=== PATIENT | male | born 1965 | race Hispanic/Latino ===

== ENCOUNTER 2018-06-15 18:05 | Emergency (ER) | payer OTHER ==
[~2018-06-15] VITALS: Ht 162.6 cm; Wt 79.4 kg
--- OUTSIDE RECORDS SUMMARY | 2018-06-15 18:07 | XMS REPORT ---
[facility] Address Unknown Phone Unavailable Care Team Providers Care Employee Relations Administrator Name Role Phone Unavailable Unavailable Payers Payer Name Policy Type Policy Number Effective Date Expiration Date Problems This patient has no known problems. Allergies, Adverse Reactions, Alerts Allergy Name Allergy Type Status Severity Reaction(s) Onset Date Inactive Date Treating Clinician Comments No Known Allergies DA Active U 2018-06-15 00:00:00 No Known Allergies DA Active U 2018-05-17 00:00:00 Medications This patient has no known medications. Results Test Description Test Time Test Comments Text Results Atomic Results Result Comments URINALYSIS COMPLETE 2018-06-15 07:03:00 UA COLOR (test code=COLU) YELLOW YELLOW UA APPEARANCE (test code=APPU) CLEAR CLEAR UA GLUCOSE DIPSTICK (test code=DGLUU) NEGATIVE mg/dL NEGATIVE UA BILIRUBIN DIPSTICK (test code=BILU) NEGATIVE mg/dL NEGATIVE UA KETONE DIPSTICK (test code=KETU) NEGATIVE mg/dL NEGATIVE UA SPECIFIC GRAVITY (test code=SGU) 1.019 1.001-1.035 UA BLOOD DIPSTICK (test code=THAD) Negative NEGATIVE UA PH DIPSTICK (test code=HOLLY) 6.0 5.0-8.0 UA PROTEIN DIPSTICK (test code=PROU) NEGATIVE mg/dL NEGATIVE UA UROBILINIOGEN DIPSTICK (test code=URO) 1 mg/dL (1+) mg/dL 0.0-0.2 UA NITRITE DIPSTICK (test code=ERINN) NEGATIVE NEGATIVE UA LEUKOCYTE ESTERASE W REFLEX (test code=LEUUR) NEGATIVE NEGATIVE UA WBC (test code=WBCU) 0-5 per HPF 0-5 UA RBC (test code=RBCU) 0-2 #/HPF 0-5 UA EPITHELIAL CELLS (test code=EPIU) FEW per HPF FEW UA MUCUS (test code=MUCU) FEW #/LPF FEW Urine Source? Clean CatchCBC W/O [id number] 06:24:00* Test Item Value Reference Range Comments WHITE BLOOD CELL (test code=WBC) 4.7 K/mm3 4.5-12.5 RED BLOOD CELL (test code=RBC) 6.65 mill/mm3 4.0-5.8 HEMOGLOBIN (test code=HGB) 12.3 gram/dL 13.0-17.5 HEMATOCRIT (test code=HCT) 40.0 % 42.0-52.0 MEAN CELL VOLUME (test code=MCV) 60.2 fL 80-98 MEAN CELL HGB (test code=MCH) 18.5 picogram 27.0-33.0 MEAN CELL HGB CONCETRATION (test code=MCHC) 30.8 gram/dL 33.0-36.0 RED CELL DISTRIBUTION WIDTH (test code=RDW) 18.2 % 11.6-16.2 PLATELET COUNT (test code=PLT) 184 K/mm3 150-450 MEAN PLATELET VOLUME (test code=MPV) 9.8 fL 6.7-11.0 - US RETRO [id number] 06:15:00 Name: KATHIEJONAS G [facility] : 1965 Age/S: 53 / M [address] [facility] Unit #: [id number] Loc: [place] [address] Phys: Ruddy Lawson MD Acct: [id number] Dis Date: Status: REG ER PHONE #: [phone] Exam Date: 06/15/2018 0558 FAX #: [phone] Reason: L flank pain EXAMS: CPT CODE: [id number] US RETRO LTD [id number] AFTER HOURS SERVICE ON: 06/15/2018 6:15 AM Renal Ultrasound Location Code M12 History: L flank pain Technique: Real-time jaime scale and color flow evaluation was performed using a dedicated transducer. Findings: The right kidney measures 10 x 5 x 6 cm. The left kidney measures 10 x 5 x 5 cm. Renal cortical echogenicities are within normal limits for patient's age. There is a 7 mm nonobstructing left upper pole renal calculus. There is no hydronephrosis. Margins of the kidneys are suboptimally visualized. Adequate flow noted in both kidneys. Bladder is empty. Impression: 7 mm nonobstructing left upper pole renal calculus. at 0615 Reported and signed by: Trevin Lizarraga M.D. CC: Ruddy Lawson MD Technologist: RIVKA ROSA RDMS Trnscb Date/Time: 06/15/2018 (614) [id number] Orig Print D/T: S: 06/15/2018 (617) Probe: PAGE 1 Signed Report BASIC METABOLIC [id number] 06:09:00* Test Item Value Reference Range Comments SODIUM (test code=NA) 139 mmol/L 136-145 POTASSIUM (test code=K) 3.7 mmol/L 3.5-5.1 CHLORIDE (test code=CL) 105.0 mmol/L 98-107 CARBON DIOXIDE (test code=CO2) 27.0 mmol/L 21-32 ANION GAP (test code=GAP) 10.7 10-20 GLUCOSE (test code=GLU) 107 mg/dL 74-106 BLOOD UREA NITROGEN (test code=BUN) 15 mg/dL 7-18 GLOMERULAR FILTRATION RATE (test code=GFR) > 60 mL/min >=60 Estimated GFR by using Modified MDRD formula.Chronic kidney disease is defined as either kidney damageor GFR <60 mL/min/1.73 m2 for >3 months. CREATININE (test code=CREAT) 0.90 mg/dL 0.7-1.3 BUN/CREATININE RATIO (test code=BUN/CREA) 16.7 10-20 CALCIUM (test code=CA) 8.2 mg/dL 8.5-10.1 HEPATIC FUNCTION [id number] 06:09:00* Test Item Value Reference Range Comments TOTAL PROTEIN (test code=PROT) 6.7 gram/dL 6.4-8.2 ALBUMIN (test code=ALB) 3.5 g/dL 3.4-5.0 GLOBULIN (test code=GLOB) 3.2 gram/dL 2.7-4.2 ALBUMIN/GLOBULIN RATIO (test code=A/G) 1.1 0.75-1.50 BILIRUBIN TOTAL (test code=BILT) 0.40 mg/dL 0.0-1.0 BILIRUBIN DIRECT (test code=BILD) 0.12 mg/dL 0.0-0.20 SGOT/AST (test code=AST) 26 IUnit/L 15-37 SGPT/ALT (test code=ALT) 30 IUnit/L 12-78 ALKALINE PHOSPHATASE TOTAL (test code=ALKP) 68 IUnit/L 45-117 Note change in reference range due to change in reagent. [id number] 06:09:00* Test Item Value Reference Range Comments LIPASE (test code=LIP) 90 U/L 73.0-393.0 BASIC METABOLIC [id number] 06:01:00* Test Item Value Reference Range Comments SODIUM (test code=NA) 139 mmol/L 136-145 POTASSIUM (test code=K) 3.7 mmol/L 3.5-5.1 CHLORIDE (test code=CL) 105.0 mmol/L 98-107 CARBON DIOXIDE (test code=CO2) mmol/L 21-32 ANION GAP (test code=GAP) 10-20 GLUCOSE (test code=GLU) mg/dL 74-106 BLOOD UREA NITROGEN (test code=BUN) mg/dL 7-18 GLOMERULAR FILTRATION RATE (test code=GFR) mL/min >=60 CREATININE (test code=CREAT) mg/dL 0.7-1.3 BUN/CREATININE RATIO (test code=BUN/CREA) 10-20 CALCIUM (test code=CA) mg/dL 8.5-10.1 HEPATIC FUNCTION [id number] 06:01:00* Test Item Value Reference Range Comments TOTAL PROTEIN (test code=PROT) gram/dL 6.4-8.2 ALBUMIN (test code=ALB) g/dL 3.4-5.0 GLOBULIN (test code=GLOB) gram/dL 2.7-4.2 ALBUMIN/GLOBULIN RATIO (test code=A/G) 0.75-1.50 BILIRUBIN TOTAL (test code=BILT) mg/dL 0.0-1.0 BILIRUBIN DIRECT (test code=BILD) mg/dL 0.0-0.20 SGOT/AST (test code=AST) IUnit/L 15-37 SGPT/ALT (test code=ALT) IUnit/L 12-78 ALKALINE PHOSPHATASE TOTAL (test code=ALKP) IUnit/L 45-117 [id number] 06:01:00* Test Item Value Reference Range Comments LIPASE (test code=LIP) U/L 73.0-393.0 URINALYSIS [id number] 05:55:00* Test Item Value Reference Range Comments UA COLOR (test code=COLU) YELLOW YELLOW UA APPEARANCE (test code=APPU) CLEAR CLEAR UA GLUCOSE DIPSTICK (test code=DGLUU) NEGATIVE mg/dL NEGATIVE UA BILIRUBIN DIPSTICK (test code=BILU) NEGATIVE mg/dL NEGATIVE UA KETONE DIPSTICK (test code=KETU) NEGATIVE mg/dL NEGATIVE UA SPECIFIC GRAVITY (test code=SGU) 1.019 1.001-1.035 UA BLOOD DIPSTICK (test code=THAD) Negative NEGATIVE UA PH DIPSTICK (test code=HOLLY) 6.0 5.0-8.0 UA PROTEIN DIPSTICK (test code=PROU) NEGATIVE mg/dL NEGATIVE UA UROBILINIOGEN DIPSTICK (test code=URO) 1 mg/dL (1+) mg/dL 0.0-0.2 UA NITRITE DIPSTICK (test code=ERINN) NEGATIVE NEGATIVE UA LEUKOCYTE ESTERASE W REFLEX (test code=LEUUR) NEGATIVE NEGATIVE UA WBC (test code=WBCU) per HPF 0-5 Urine Source? Clean CatchCBC W/AUTO [id number] 20:53:00* Test Item Value Reference Range Comments WHITE BLOOD CELL (test code=WBC) 8.4 K/mm3 4.5-12.5 RED BLOOD CELL (test code=RBC) 7.64 mill/mm3 4.0-5.8 HEMOGLOBIN (test code=HGB) 13.8 gram/dL 13.0-17.5 HEMATOCRIT (test code=HCT) 47.3 % 42.0-52.0 MEAN CELL VOLUME (test code=MCV) 61.9 fL 80-98 MEAN CELL HGB (test code=MCH) 18.1 picogram 27.0-33.0 MEAN CELL HGB CONCETRATION (test code=MCHC) 29.2 gram/dL 33.0-36.0 RED CELL DISTRIBUTION WIDTH (test code=RDW) 19.5 % 11.6-16.2 RED CELL DISTRIBUTION WIDTH SD (test code=RDW-SD) 34.5 fL 37.0-51.0 PLATELET COUNT (test code=PLT) 246 K/mm3 150-450 MEAN PLATELET VOLUME (test code=MPV) 10.0 fL 6.7-11.0 NEUTROPHIL % (test code=NT%) 45.6 % 39.0-69.0 IMMATURE GRANULOCYTE % (test code=IG%) 0.5 % 0.0-5.0 LYMPHOCYTE % (test code=LY%) 38.9 % 25.0-55.0 MONOCYTE % (test code=MO%) 8.1 % 0.0-10.0 EOSINOPHIL % (test code=EO%) 6.2 % 0.0-5.0 BASOPHIL % (test code=BA%) 0.7 % 0.0-1.0 NUCLEATED RBC % (test code=NRBC%) 0.0 % 0-0 NEUTROPHIL # (test code=NT#) 3.81 K/mm3 1.8-7.7 IMMATURE GRANULOCYTE # (test code=IG#) 0.04 x10 3/uL 0-0.03 LYMPHOCYTE # (test code=LY#) 3.25 K/mm3 1.0-5.0 MONOCYTE # (test code=MO#) 0.68 K/mm3 0-0.8 EOSINOPHIL # (test code=EO#) 0.52 K/mm3 0.0-0.5 BASOPHIL # (test code=BA#) 0.06 K/mm3 0.0-0.2 NUCLEATED RBC # (test code=NRBC#) 0.00 K/mm3 0.0-0.1 MANUAL DIFF REQUIRED (test code=MDIFF) NO, ONLY SCAN NEEDED DIFFERENTIAL [id number] 20:53:00* Test Item Value Reference Range Comments STAIN ACCEPTABILITY (test code=STN ACCEPTABLE) STAIN ACCEPTABLE POLYCHROMASIA (test code=POLC) 1+ HYPOCHROMIA (test code=HYPO) 1+ POIKILOCYTOSIS (test code=POIK) 1+ ANISOCYTOSIS (test code=ANISO) 1+ MICROCYTOSIS (test code=MICR) 1+ OVALOCYTES (test code=OVAL) 1+ PLATELET ESTIMATE (test code=PLTEST) ADEQUATE PLATELET MORPHOLOGY (test code=PLTMORPH) NORMAL BASIC METABOLIC [id number] 20:35:00* Test Item Value Reference Range Comments SODIUM (test code=NA) 139 mmol/L 136-145 POTASSIUM (test code=K) 3.6 mmol/L 3.5-5.1 CHLORIDE (test code=CL) 104.0 mmol/L 98-107 CARBON DIOXIDE (test code=CO2) 30.0 mmol/L 21-32 ANION GAP (test code=GAP) 8.6 10-20 GLUCOSE (test code=GLU) 79 mg/dL 74-106 BLOOD UREA NITROGEN (test code=BUN) 15 mg/dL 7-18 GLOMERULAR FILTRATION RATE (test code=GFR) > 60 mL/min >=60 Estimated GFR by using Modified MDRD formula.Chronic kidney disease is defined as either kidney damageor GFR <60 mL/min/1.73 m2 for >3 months. CREATININE (test code=CREAT) 1.00 mg/dL 0.7-1.3 BUN/CREATININE RATIO (test code=BUN/CREA) 14.4 10-20 CALCIUM (test code=CA) 9.0 mg/dL 8.5-10.1 BASIC METABOLIC [id number] 20:30:00* Test Item Value Reference Range Comments SODIUM (test code=NA) 139 mmol/L 136-145 POTASSIUM (test code=K) 3.6 mmol/L 3.5-5.1 CHLORIDE (test code=CL) 104.0 mmol/L 98-107 CARBON DIOXIDE (test code=CO2) mmol/L 21-32 ANION GAP (test code=GAP) 10-20 GLUCOSE (test code=GLU) mg/dL 74-106 BLOOD UREA NITROGEN (test code=BUN) mg/dL 7-18 GLOMERULAR FILTRATION RATE (test code=GFR) mL/min >=60 CREATININE (test code=CREAT) mg/dL 0.7-1.3 BUN/CREATININE RATIO (test code=BUN/CREA) 10-20 CALCIUM (test code=CA) mg/dL 8.5-10.1 CBC W/AUTO [id number] 20:05:00* Test Item Value Reference Range Comments WHITE BLOOD CELL (test code=WBC) 8.4 K/mm3 4.5-12.5 RED BLOOD CELL (test code=RBC) 7.64 mill/mm3 4.0-5.8 HEMOGLOBIN (test code=HGB) 13.8 gram/dL 13.0-17.5 HEMATOCRIT (test code=HCT) 47.3 % 42.0-52.0 MEAN CELL VOLUME (test code=MCV) 61.9 fL 80-98 MEAN CELL HGB (test code=MCH) 18.1 picogram 27.0-33.0 MEAN CELL HGB CONCETRATION (test code=MCHC) 29.2 gram/dL 33.0-36.0 RED CELL DISTRIBUTION WIDTH (test code=RDW) 19.5 % 11.6-16.2 RED CELL DISTRIBUTION WIDTH SD (test code=RDW-SD) 34.5 fL 37.0-51.0 PLATELET COUNT (test code=PLT) 246 K/mm3 150-450 MEAN PLATELET VOLUME (test code=MPV) 10.0 fL 6.7-11.0 NEUTROPHIL % (test code=NT%) 45.6 % 39.0-69.0 IMMATURE GRANULOCYTE % (test code=IG%) 0.5 % 0.0-5.0 LYMPHOCYTE % (test code=LY%) 38.9 % 25.0-55.0 MONOCYTE % (test code=MO%) 8.1 % 0.0-10.0 EOSINOPHIL % (test code=EO%) 6.2 % 0.0-5.0 BASOPHIL % (test code=BA%) 0.7 % 0.0-1.0 NUCLEATED RBC % (test code=NRBC%) 0.0 % 0-0 NEUTROPHIL # (test code=NT#) 3.81 K/mm3 1.8-7.7 IMMATURE GRANULOCYTE # (test code=IG#) 0.04 x10 3/uL 0-0.03 LYMPHOCYTE # (test code=LY#) 3.25 K/mm3 1.0-5.0 MONOCYTE # (test code=MO#) 0.68 K/mm3 0-0.8 EOSINOPHIL # (test code=EO#) 0.52 K/mm3 0.0-0.5 BASOPHIL # (test code=BA#) 0.06 K/mm3 0.0-0.2 NUCLEATED RBC # (test code=NRBC#) 0.00 K/mm3 0.0-0.1 MANUAL DIFF REQUIRED (test code=MDIFF) NO, ONLY SCAN NEEDED DIFFERENTIAL [id number] 20:05:00* Test Item Value Reference Range Comments STAIN ACCEPTABILITY (test code=STN ACCEPTABLE) CABOT RINGS (test code=CAB) MORPHOLOGY COMMENT (test code=MOC) PLATELET ESTIMATE (test code=PLTEST) PLATELET MORPHOLOGY (test code=PLTMORPH) CBC W/AUTO [id number] 20:05:00* Test Item Value Reference Range Comments WHITE BLOOD CELL (test code=WBC) 8.4 K/mm3 4.5-12.5 RED BLOOD CELL (test code=RBC) 7.64 mill/mm3 4.0-5.8 HEMOGLOBIN (test code=HGB) 13.8 gram/dL 13.0-17.5 HEMATOCRIT (test code=HCT) 47.3 % 42.0-52.0 MEAN CELL VOLUME (test code=MCV) 61.9 fL 80-98 MEAN CELL HGB (test code=MCH) 18.1 picogram 27.0-33.0 MEAN CELL HGB CONCETRATION (test code=MCHC) 29.2 gram/dL 33.0-36.0 RED CELL DISTRIBUTION WIDTH (test code=RDW) 19.5 % 11.6-16.2 RED CELL DISTRIBUTION WIDTH SD (test code=RDW-SD) 34.5 fL 37.0-51.0 PLATELET COUNT (test code=PLT) 246 K/mm3 150-450 MEAN PLATELET VOLUME (test code=MPV) 10.0 fL 6.7-11.0 NEUTROPHIL % (test code=NT%) 45.6 % 39.0-69.0 IMMATURE GRANULOCYTE % (test code=IG%) 0.5 % 0.0-5.0 LYMPHOCYTE % (test code=LY%) 38.9 % 25.0-55.0 MONOCYTE % (test code=MO%) 8.1 % 0.0-10.0 EOSINOPHIL % (test code=EO%) 6.2 % 0.0-5.0 BASOPHIL % (test code=BA%) 0.7 % 0.0-1.0 NUCLEATED RBC % (test code=NRBC%) 0.0 % 0-0 NEUTROPHIL # (test code=NT#) 3.81 K/mm3 1.8-7.7 IMMATURE GRANULOCYTE # (test code=IG#) 0.04 x10 3/uL 0-0.03 LYMPHOCYTE # (test code=LY#) 3.25 K/mm3 1.0-5.0 MONOCYTE # (test code=MO#) 0.68 K/mm3 0-0.8 EOSINOPHIL # (test code=EO#) 0.52 K/mm3 0.0-0.5 BASOPHIL # (test code=BA#) 0.06 K/mm3 0.0-0.2 NUCLEATED RBC # (test code=NRBC#) 0.00 K/mm3 0.0-0.1 MANUAL DIFF REQUIRED (test code=MDIFF) NO, ONLY SCAN NEEDED DIFFERENTIAL [id number] 20:05:00* Test Item Value Reference Range Comments STAIN ACCEPTABILITY (test code=STN ACCEPTABLE) MORPHOLOGY COMMENT (test code=MOC) PLATELET ESTIMATE (test code=PLTEST) PLATELET MORPHOLOGY (test code=PLTMORPH) CBC W/AUTO [id number] 20:04:00* Test Item Value Reference Range Comments WHITE BLOOD CELL (test code=WBC) 8.4 K/mm3 4.5-12.5 RED BLOOD CELL (test code=RBC) 7.64 mill/mm3 4.0-5.8 HEMOGLOBIN (test code=HGB) 13.8 gram/dL 13.0-17.5 HEMATOCRIT (test code=HCT) 47.3 % 42.0-52.0 MEAN CELL VOLUME (test code=MCV) 61.9 fL 80-98 MEAN CELL HGB (test code=MCH) 18.1 picogram 27.0-33.0 MEAN CELL HGB CONCETRATION (test code=MCHC) 29.2 gram/dL 33.0-36.0 RED CELL DISTRIBUTION WIDTH (test code=RDW) 19.5 % 11.6-16.2 RED CELL DISTRIBUTION WIDTH SD (test code=RDW-SD) 34.5 fL 37.0-51.0 PLATELET COUNT (test code=PLT) 246 K/mm3 150-450 MEAN PLATELET VOLUME (test code=MPV) 10.0 fL 6.7-11.0 NEUTROPHIL % (test code=NT%) 45.6 % 39.0-69.0 IMMATURE GRANULOCYTE % (test code=IG%) 0.5 % 0.0-5.0 LYMPHOCYTE % (test code=LY%) 38.9 % 25.0-55.0 MONOCYTE % (test code=MO%) 8.1 % 0.0-10.0 EOSINOPHIL % (test code=EO%) 6.2 % 0.0-5.0 BASOPHIL % (test code=BA%) 0.7 % 0.0-1.0 NUCLEATED RBC % (test code=NRBC%) 0.0 % 0-0 NEUTROPHIL # (test code=NT#) 3.81 K/mm3 1.8-7.7 IMMATURE GRANULOCYTE # (test code=IG#) 0.04 x10 3/uL 0-0.03 LYMPHOCYTE # (test code=LY#) 3.25 K/mm3 1.0-5.0 MONOCYTE # (test code=MO#) 0.68 K/mm3 0-0.8 EOSINOPHIL # (test code=EO#) 0.52 K/mm3 0.0-0.5 BASOPHIL # (test code=BA#) 0.06 K/mm3 0.0-0.2 NUCLEATED RBC # (test code=NRBC#) 0.00 K/mm3 0.0-0.1 MANUAL DIFF REQUIRED (test code=MDIFF) NO, ONLY SCAN NEEDED DIFFERENTIAL [id number] 20:04:00* Test Item Value Reference Range Comments STAIN ACCEPTABILITY (test code=STN ACCEPTABLE) CABOT RINGS (test code=CAB) MORPHOLOGY COMMENT (test code=MOC) PLATELET ESTIMATE (test code=PLTEST) PLATELET MORPHOLOGY (test code=PLTMORPH) CBC W/AUTO [id number] 20:04:00* Test Item Value Reference Range Comments WHITE BLOOD CELL (test code=WBC) 8.4 K/mm3 4.5-12.5 RED BLOOD CELL (test code=RBC) 7.64 mill/mm3 4.0-5.8 HEMOGLOBIN (test code=HGB) 13.8 gram/dL 13.0-17.5 HEMATOCRIT (test code=HCT) 47.3 % 42.0-52.0 MEAN CELL VOLUME (test code=MCV) 61.9 fL 80-98 MEAN CELL HGB (test code=MCH) 18.1 picogram 27.0-33.0 MEAN CELL HGB CONCETRATION (test code=MCHC) 29.2 gram/dL 33.0-36.0 RED CELL DISTRIBUTION WIDTH (test code=RDW) 19.5 % 11.6-16.2 RED CELL DISTRIBUTION WIDTH SD (test code=RDW-SD) 34.5 fL 37.0-51.0 PLATELET COUNT (test code=PLT) 246 K/mm3 150-450 MEAN PLATELET VOLUME (test code=MPV) 10.0 fL 6.7-11.0 NEUTROPHIL % (test code=NT%) 45.6 % 39.0-69.0 IMMATURE GRANULOCYTE % (test code=IG%) 0.5 % 0.0-5.0 LYMPHOCYTE % (test code=LY%) 38.9 % 25.0-55.0 MONOCYTE % (test code=MO%) 8.1 % 0.0-10.0 EOSINOPHIL % (test code=EO%) 6.2 % 0.0-5.0 BASOPHIL % (test code=BA%) 0.7 % 0.0-1.0 NUCLEATED RBC % (test code=NRBC%) 0.0 % 0-0 NEUTROPHIL # (test code=NT#) 3.81 K/mm3 1.8-7.7 IMMATURE GRANULOCYTE # (test code=IG#) 0.04 x10 3/uL 0-0.03 LYMPHOCYTE # (test code=LY#) 3.25 K/mm3 1.0-5.0 MONOCYTE # (test code=MO#) 0.68 K/mm3 0-0.8 EOSINOPHIL # (test code=EO#) 0.52 K/mm3 0.0-0.5 BASOPHIL # (test code=BA#) 0.06 K/mm3 0.0-0.2 NUCLEATED RBC # (test code=NRBC#) 0.00 K/mm3 0.0-0.1 MANUAL DIFF REQUIRED (test code=MDIFF) NO, ONLY SCAN NEEDED DIFFERENTIAL [id number] 20:04:00* Test Item Value Reference Range Comments STAIN ACCEPTABILITY (test code=STN ACCEPTABLE) CABOT RINGS (test code=CAB) MORPHOLOGY COMMENT (test code=MOC) PLATELET ESTIMATE (test code=PLTEST) PLATELET MORPHOLOGY (test code=PLTMORPH) CBC W/AUTO [id number] 20:02:00* Test Item Value Reference Range Comments WHITE BLOOD CELL (test code=WBC) K/mm3 4.5-12.5 RED BLOOD CELL (test code=RBC) mill/mm3 4.0-5.8 HEMOGLOBIN (test code=HGB) 13.8 gram/dL 13.0-17.5 HEMATOCRIT (test code=HCT) 47.3 % 42.0-52.0 MEAN CELL VOLUME (test code=MCV) fL 80-98 MEAN CELL HGB (test code=MCH) picogram 27.0-33.0 MEAN CELL HGB CONCETRATION (test code=MCHC) gram/dL 33.0-36.0 RED CELL DISTRIBUTION WIDTH (test code=RDW) % 11.6-16.2 RED CELL DISTRIBUTION WIDTH SD (test code=RDW-SD) fL 37.0-51.0 PLATELET COUNT (test code=PLT) K/mm3 150-450 MEAN PLATELET VOLUME (test code=MPV) fL 6.7-11.0 NEUTROPHIL % (test code=NT%) % 39.0-69.0 IMMATURE GRANULOCYTE % (test code=IG%) % 0.0-5.0 LYMPHOCYTE % (test code=LY%) % 25.0-55.0 MONOCYTE % (test code=MO%) % 0.0-10.0 EOSINOPHIL % (test code=EO%) % 0.0-5.0 BASOPHIL % (test code=BA%) % 0.0-1.0 NEUTROPHIL # (test code=NT#) K/mm3 1.8-7.7 LYMPHOCYTE # (test code=LY#) K/mm3 1.0-5.0 MONOCYTE # (test code=MO#) K/mm3 0-0.8 EOSINOPHIL # (test code=EO#) K/mm3 0.0-0.5 BASOPHIL # (test code=BA#) K/mm3 0.0-0.2
[2018-06-15 19:01] LABS: CLARITY,URINE HAZY (CLEAR); COLOR,URINE YELLOW (YELLOW); LEUKOCYTE ESTERASE ,URINE NEGATIVE (NEGATIVE)
[2018-06-15 19:02] LABS: BILIRUBIN,URINE NEGATIVE (NEGATIVE); KETONES,URINE NEGATIVE (NEGATIVE); NITRITE,URINE NEGATIVE (NEGATIVE); PROTEIN,URINE DIPSTICK NEGATIVE (NEGATIVE); URINE UROBILINOGEN 1 mg/dL (0.2 - 1)
[2018-06-15 19:11] LABS: BACTERIA,URINE FEW /HPF; EPITHELIAL CELLS,URINE FEW /LPF
[2018-06-15] MEDS ORDERED: KETOROLAC TROMETHAMINE 60 MG/2 ML VIAL IM ONE (21:30)
--- NOTE | 2018-06-15 22:11 | Diagnostic Imaging Report ---
EXAM: CT Abdomen and Pelvis WITHOUT contrast INDICATION: left flank pain COMPARISON: None. TECHNIQUE: Abdomen and pelvis were scanned utilizing a multidetector helical scanner from the lung base to the pubic symphysis without administration of IV contrast. Absence of intravenous contrast decreases sensitivity for detection of focal lesions and vascular pathology. Coronal and sagittal reformations were obtained. Routine protocol was performed. IV CONTRAST: None ORAL CONTRAST: Water COMPLICATIONS: None RADIATION DOSE: Total DLP: 435.6 mGy*cm Estimated effective dose: (DLP x 0.015 x size factor) mSv Dose modulation, iterative reconstruction, and/or weight based adjustment of the mA/kV was utilized to reduce the radiation dose to as low as reasonably achievable. FINDINGS: LINES and TUBES: None. LOWER THORAX: Unremarkable HEPATOBILIARY: Left hepatic 1.7 cm cyst. No biliary ductal dilation. GALLBLADDER: No radio-opaque stones or sludge. No wall thickening. SPLEEN: No splenomegaly. PANCREAS: No focal masses or ductal dilatation. ADRENALS: No adrenal nodules KIDNEYS/URETERS: No perinephric stranding. No hydronephrosis. No cystic or solid mass lesions. No stones. GI TRACT: No abnormal distention, wall thickening, or evidence of bowel obstruction. Appendix is normal. PELVIC ORGANS/BLADDER: Unremarkable. LYMPH NODES: No lymphadenopathy. VESSELS: There is mild atherosclerotic disease in the aorta and major arterial branches. PERITONEUM / RETROPERITONEUM: No free air or fluid. BONES: There are degenerative changes in the lumbar spine. SOFT TISSUES: Unremarkable. IMPRESSION: No acute abnormalities. Signed by: DR. Galen Renee MD on 06/15/2018 10:08 PM
[2018-06-15 22:55] VITALS: BP 121/76
== END 2018-06-15 23:09 | disposition home or self-care (01) ==
LOC: ER 18:05
DX: R10.32 Left lower quadrant pain (principal); S39.011A Strain of muscle, fascia and tendon of abdomen, initial encounter; S39.012A Strain of muscle, fascia and tendon of lower back, initial encounter; I10 Essential (primary) hypertension; Z87.442 Personal history of urinary calculi
CPT/HCPCS: 74176; 81001; 99283; J1885

== ENCOUNTER 2019-11-15 07:01 | Emergency (ER) | payer OTHER ==
[~2019-11-15] VITALS: Ht 162.6 cm; Wt 79.4 kg
[2019-11-15] MEDS ORDERED: SODIUM CHLORIDE 0.9% 1000ML 1,000 ML IV STA (07:06)
[2019-11-15] MEDS ORDERED: ACETAMINOPHEN 325 MG TAB PO ONE (07:15)
--- OUTSIDE RECORDS SUMMARY | 2019-11-15 07:21 | XMS REPORT | Continuity of Care Document ---
Author Author [facility] t Organization [facility] Address [address] [place] [address] Phone Unavailable Care Team Providers Care Architecture Drafter Name Role Phone NO, PCP PCP Unavailable Vilma DEVINE Attphys Unavailable Payers Payer Name Policy Type Policy Number Effective Date Expiration Date S najma [facility] [id number] 2018 00:00:00 [facility] Problems This patient has no known problems. Allergies, Adverse Reactions, Alerts Allergy Name Allergy Type Status Severity Reaction(s) Onset Date Inacti ve Date Treating Clinician Comments Source No Known Allergies DA Active U 2018-06-15 00:00:00 [facility] No Known Allergies DA Active U 2018-05-17 00:00:00 [facility] Medications This patient has no known medications. Procedures Procedure Date / Time Performed Performing Clinician Sourc e CT of abdomen and pelvis without contrast 2018-06-15 00:00:0 0 ZOHAIB CONNORS [facility] Encounters Start Date/Time End Date/Time Encounter Type Admission Type Attendi [facility] Care Department Encounter ID Source 2018-06-15 18:05:00 2018-06-15 23:09:00 Departed Emergency Room 1 MINO DEVINE [facility] [id number] [facility] Results Test Description Test Time Test Comments Results Result Comments Source CREATINE KINASE (CK) 2019-11-13 09:31:00 Test Item CREATINE KINASE (CK) (test code = CK) 156 U/L 39-[address] ABDOMEN/PELVIS [id number] 22:04:00 [facility] [address] [address] Patient Name: JONAS VÁZQUEZ MR #: [id number] : 1965 Age/Sex: 53/M Req #: [id number] Adm Physician: Ordered by: ZOHAIB CONNORS MD Report #: [id number] Location: ER Room/Bed: Procedure: [id number] CT/CT ABDOMEN/PELVIS WO Exam Date: 06/15/18 Alissa m Time: 2131 REPORT STATUS: Signed EXAM: CT Abdomen and Pelvis WITHOUT contrast INDICATION: left flank pain COMPARISON: None. TECHNIQUE: Abdomen and pelvis were scanned utilizing a multidetector helical scanner from the lung base to the pubic symphysis withou t administration of IV contrast. Absence of intravenous contrast decreases sen sitivity for detection of focal lesions and vascular pathology. Coronal and sa gittal reformations were obtained. Routine protocol was performed. IV CONTRAST: None ORAL CONTRAST: Water COMPLICATIONS: None RADIATION DOSE: Total DLP: 435.6 mGy*cm Estimated effective d ose: (DLP x 0.015 x size factor) mSv Dose modulation, iterative reconstru ction, and/or weight based adjustment of the mA/kV was utilized to reduce the radiation dose to as low as reasonably achievable. FINDINGS: LINES and TUBES: None. LOWER THORAX: Unremarkable HEPATOBILIARY: Left hepatic 1.7 cm cyst. No biliary ductal dilation. GALLBLADDER: No radio-opa que stones or sludge. No wall thickening. SPLEEN: No splenomegaly. P ANCREAS: No focal masses or ductal dilatation. ADRENALS: No adrenal nodul es KIDNEYS/URETERS: No perinephric stranding. No hydronephrosis. No cys tic or solid mass lesions. No stones. GI TRACT: No abnormal distention, wall thickening, or evidence of bowel obstruction. Appendix is normal. PELVIC ORGANS/BLADDER: Unremarkable. LYMPH NODES: No lymphadenopathy. VESSELS: There is mild atherosclerotic disease in the aorta and major arterial branches. PERITONEUM / RETROPERITONEUM: No free air or fluid. BONES: There are degenerative changes in the lumbar spine. SOFT TISSUES: Unrem arkable. IMPRESSION: No acute abnormalities. Signed by: DR. Galen Mccormack MD on 06/15/2018 10:08 PM Dictated By: GALEN MCCORMACK MD 07 Transcribed By: OTTO on 06/15/182207 COPY TO: ZOHAIB CONNORS MD Urine [id number] 19:11:00* Test Item Value Reference Range Interpretation Comments Urine WBC (test code = 5821-4) NONE 0-5 [facility] [id number] 19:11:00* Test Item Value Reference Range Interpretation Comments Urine RBC (test code = 15639-4) NONE 0-5 [facility] [id number] 19:11:00* Test Item Value Reference Range Interpretation Comments Urine Bacteria (test code = 74075-1) FEW NONE [facility] Epithelial [id number] 19:11:00 * Test Item Value Reference Range Interpretation Comments Urine Epithelial Cells (test code = 91809-0) FEW NONE [facility] [id number] 19:02:00* Test Item Value Reference Range Interpretation Comments Urine Color (test code = 5778-6) YELLOW YELLOW [facility] [id number] 19:02:00* Test Item Value Reference Range Interpretation Comments Urine Clarity (test code = 73226-3) HAZY CLEAR [facility] Specific [id number] 19:02:00 * Test Item Value Reference Range Interpretation Comments Urine Specific Hamel (test code = 5811-5) 1.010 1.010-1.02 5 [facility] [id number] 19:02:00* Test Item Value Reference Range Interpretation Comments Urine pH (test code = 02948-6) 7 5-7 [facility] Leukocyte [id number] 19:02:00* Test Item Value Reference Range Interpretation Comments Urine Leukocyte Esterase (test code = 5799-2) NEGATIVE NEGATIVE [facility] [id number] 19:02:00* Test Item Value Reference Range Interpretation Comments Urine Nitrite (test code = 19256-8) NEGATIVE NEGATIVE [facility] [id number] 19:02:00* Test Item Value Reference Range Interpretation Comments Urine Protein (test code = 5804-0) NEGATIVE NEGATIVE [facility] Glucose (UA)2018-06-15 19:02:00* Test Item Value Reference Range Interpretation Comments Urine Glucose (UA) (test code = 2349-9) NEGATIVE NEGATIVE [facility] [id number] 19:02:00* Test Item Value Reference Range Interpretation Comments Urine Ketones (test code = 75086-7) NEGATIVE NEGATIVE [facility] [id number] 19:02:00* Test Item Value Reference Range Interpretation Comments Urine Urobilinogen (test code = 09998-5) 1 0.2-1 [facility] [id number] 19:02:00* Test Item Value Reference Range Interpretation Comments Urine Bilirubin (test code = 1978-6) NEGATIVE NEGATIVE [facility] [id number] 19:02:00* Test Item Value Reference Range Interpretation Comments Urine Blood (test code = 67514-5) NEGATIVE NEGATIVE [facility] [id number] 07:03:00* Test Item Value Reference Range Interpretation Comments UA COLOR (test code = COLU) YELLOW YELLOW UA APPEARANCE (test code = APPU) CLEAR CLEAR UA GLUCOSE DIPSTICK (test code = DGLUU) NEGATIVE mg/dL NEGATIVE UA BILIRUBIN DIPSTICK (test code = BILU) NEGATIVE mg/dL NEGATIVE UA KETONE DIPSTICK (test code = KETU) NEGATIVE mg/dL NEGATIVE UA SPECIFIC GRAVITY (test code = SGU) 1.019 1.001-1.035 UA BLOOD DIPSTICK (test code = THAD) Negative NEGATIVE UA PH DIPSTICK (test code = HOLLY) 6.0 5.0-8.0 UA PROTEIN DIPSTICK (test code = PROU) NEGATIVE mg/dL NEGATIVE UA UROBILINIOGEN DIPSTICK (test code = URO) 1 mg/dL (1+) mg/dL 0.0 -0.2 UA NITRITE DIPSTICK (test code = ERINN) NEGATIVE NEGATIVE UA LEUKOCYTE ESTERASE W REFLEX (test code = LEUUR) NEGATIVE NEG ATIVE UA WBC (test code = WBCU) 0-5 per HPF 0-5 UA RBC (test code = RBCU) 0-2 #/HPF 0-5 UA EPITHELIAL CELLS (test code = EPIU) FEW per HPF FEW UA MUCUS (test code = MUCU) FEW #/LPF FEW Urine Source? Clean CatchCBC W/O [id number] 06:24:00* Test Item Value Reference Range Interpretation Comments WHITE BLOOD CELL (test code = WBC) 4.7 K/mm3 4.5-12.5 N RED BLOOD CELL (test code = RBC) 6.65 mill/mm3 4.0-5.8 H HEMOGLOBIN (test code = HGB) 12.3 gram/dL 13.0-17.5 L HEMATOCRIT (test code = HCT) 40.0 % 42.0-52.0 L MEAN CELL VOLUME (test code = MCV) 60.2 fL 80-98 L MEAN CELL HGB (test code = MCH) 18.5 picogram 27.0-33.0 L MEAN CELL HGB CONCETRATION (test code = MCHC) 30.8 gram/dL 33.0-36. 0 L RED CELL DISTRIBUTION WIDTH (test code = RDW) 18.2 % 11.6-16. 2 H PLATELET COUNT (test code = PLT) 184 K/mm3 150-450 N MEAN PLATELET VOLUME (test code = MPV) 9.8 fL 6.7-11.0 N - US RETRO [id number] 06:15:00 Name: JONAS VÁZQUEZ [facility] : 1965 Age/S: 53 / M [address] Unit #: [id number] Loc: [place] [address] Phys: Ruddy Lawson MD Acct: [id number] Dis Date: Status: REG ER PHONE #: [phone] Exam Date: 06/15/2018 0558 FAX #: [phone] Reason: L flank pain EXAMS: CPT CODE: [id number] [facility] [id number] AFTER HOURS SERVICE ON: 06/15/2018 6:15 AM [...] (614) [id number] Orig Print D/T: S: 06/15/2018 (06) Probe: PAGE 1 Signed Report BASIC METABOLIC [id number] 06:09:00* Test Item Value Reference Range Interpretation Comments SODIUM (test code = NA) 139 mmol/L 136-145 N POTASSIUM (test code = K) 3.7 mmol/L 3.5-5.1 N CHLORIDE (test code = CL) 105.0 mmol/L 98-107 N CARBON DIOXIDE (test code = CO2) 27.0 mmol/L 21-32 N ANION GAP (test code = GAP) 10.7 10-20 N GLUCOSE (test code = GLU) 107 mg/dL 74-106 H BLOOD UREA NITROGEN (test code = BUN) 15 mg/dL 7-18 N GLOMERULAR FILTRATION RATE (test code = GFR) > 60 mL/min >=60 Estimated GFR by using Modified MDRD formula.Chronic kidney disease is defined as either kidney damageor GFR <60 mL/min/1.73 m2 for >3 months. CREATININE (test code = CREAT) 0.90 mg/dL 0.7-1.3 N BUN/CREATININE RATIO (test code = BUN/CREA) 16.7 10-20 N CALCIUM (test code = CA) 8.2 mg/dL 8.5-10.1 L HEPATIC FUNCTION [id number] 06:09:00* Test Item Value Reference Range Interpretation Comments TOTAL PROTEIN (test code = PROT) 6.7 gram/dL 6.4-8.2 N ALBUMIN (test code = ALB) 3.5 g/dL 3.4-5.0 N GLOBULIN (test code = GLOB) 3.2 gram/dL 2.7-4.2 N ALBUMIN/GLOBULIN RATIO (test code = A/G) 1.1 0.75-1.50 N BILIRUBIN TOTAL (test code = BILT) 0.40 mg/dL 0.0-1.0 N BILIRUBIN DIRECT (test code = BILD) 0.12 mg/dL 0.0-0.20 N SGOT/AST (test code = AST) 26 IUnit/L 15-37 N SGPT/ALT (test code = ALT) 30 IUnit/L 12-78 N ALKALINE PHOSPHATASE TOTAL (test code = ALKP) 68 IUnit/L 45-117 N Note change in reference range due to change in reagent. [id number] 06:09:00* Test Item Value Reference Range Interpretation Comments LIPASE (test code = LIP) 90 U/L 73.0-393.0 N BASIC METABOLIC [id number] 06:01:00* Test Item Value Reference Range Interpretation Comments SODIUM (test code = NA) 139 mmol/L 136-145 N POTASSIUM (test code = K) 3.7 mmol/L 3.5-5.1 N CHLORIDE (test code = CL) 105.0 mmol/L 98-107 N CARBON DIOXIDE (test code = CO2) mmol/L 21-32 ANION GAP (test code = GAP) 10-20 GLUCOSE (test code = GLU) mg/dL 74-106 BLOOD UREA NITROGEN (test code = BUN) mg/dL 7-18 GLOMERULAR FILTRATION RATE (test code = GFR) mL/min >=60 CREATININE (test code = CREAT) mg/dL 0.7-1.3 BUN/CREATININE RATIO (test code = BUN/CREA) 10-20 CALCIUM (test code = CA) mg/dL 8.5-10.1 HEPATIC FUNCTION [id number] 06:01:00* Test Item Value Reference Range Interpretation Comments TOTAL PROTEIN (test code = PROT) gram/dL 6.4-8.2 ALBUMIN (test code = ALB) g/dL 3.4-5.0 GLOBULIN (test code = GLOB) gram/dL 2.7-4.2 ALBUMIN/GLOBULIN RATIO (test code = A/G) 0.75-1.50 BILIRUBIN TOTAL (test code = BILT) mg/dL 0.0-1.0 BILIRUBIN DIRECT (test code = BILD) mg/dL 0.0-0.20 SGOT/AST (test code = AST) IUnit/L 15-37 SGPT/ALT (test code = ALT) IUnit/L 12-78 ALKALINE PHOSPHATASE TOTAL (test code = ALKP) IUnit/L 45-117 [id number] 06:01:00* Test Item Value Reference Range Interpretation Comments LIPASE (test code = LIP) U/L 73.0-393.0 URINALYSIS [id number] 05:55:00* Test Item Value Reference Range Interpretation Comments UA COLOR (test code = COLU) YELLOW YELLOW UA APPEARANCE (test code = APPU) CLEAR CLEAR UA GLUCOSE DIPSTICK (test code = DGLUU) NEGATIVE mg/dL NEGATIVE UA BILIRUBIN DIPSTICK (test code = BILU) NEGATIVE mg/dL NEGATIVE UA KETONE DIPSTICK (test code = KETU) NEGATIVE mg/dL NEGATIVE UA SPECIFIC GRAVITY (test code = SGU) 1.019 1.001-1.035 UA BLOOD DIPSTICK (test code = THAD) Negative NEGATIVE UA PH DIPSTICK (test code = HOLLY) 6.0 5.0-8.0 UA PROTEIN DIPSTICK (test code = PROU) NEGATIVE mg/dL NEGATIVE UA UROBILINIOGEN DIPSTICK (test code = URO) 1 mg/dL (1+) mg/dL 0.0 -0.2 UA NITRITE DIPSTICK (test code = ERINN) NEGATIVE NEGATIVE UA LEUKOCYTE ESTERASE W REFLEX (test code = LEUUR) NEGATIVE NEG ATIVE UA WBC (test code = WBCU) per HPF 0-5 Urine Source? Clean CatchCBC W/AUTO [id number] 20:53:00* Test Item Value Reference Range Interpretation Comments WHITE BLOOD CELL (test code = WBC) 8.4 K/mm3 4.5-12.5 N RED BLOOD CELL (test code = RBC) 7.64 mill/mm3 4.0-5.8 H HEMOGLOBIN (test code = HGB) 13.8 gram/dL 13.0-17.5 N HEMATOCRIT (test code = HCT) 47.3 % 42.0-52.0 N MEAN CELL VOLUME (test code = MCV) 61.9 fL 80-98 L MEAN CELL HGB (test code = MCH) 18.1 picogram 27.0-33.0 L MEAN CELL HGB CONCETRATION (test code = MCHC) 29.2 gram/dL 33.0-36. 0 L RED CELL DISTRIBUTION WIDTH (test code = RDW) 19.5 % 11.6-16. 2 H RED CELL DISTRIBUTION WIDTH SD (test code = RDW-SD) 34.5 fL 37 .0-51.0 L PLATELET COUNT (test code = PLT) 246 K/mm3 150-450 N MEAN PLATELET VOLUME (test code = MPV) 10.0 fL 6.7-11.0 N NEUTROPHIL % (test code = NT%) 45.6 % 39.0-69.0 N IMMATURE GRANULOCYTE % (test code = IG%) 0.5 % 0.0-5.0 N LYMPHOCYTE % (test code = LY%) 38.9 % 25.0-55.0 N MONOCYTE % (test code = MO%) 8.1 % 0.0-10.0 N EOSINOPHIL % (test code = EO%) 6.2 % 0.0-5.0 H BASOPHIL % (test code = BA%) 0.7 % 0.0-1.0 N NUCLEATED RBC % (test code = NRBC%) 0.0 % 0-0 N NEUTROPHIL # (test code = NT#) 3.81 K/mm3 1.8-7.7 N IMMATURE GRANULOCYTE # (test code = IG#) 0.04 x10 3/uL 0-0.03 H LYMPHOCYTE # (test code = LY#) 3.25 K/mm3 1.0-5.0 N MONOCYTE # (test code = MO#) 0.68 K/mm3 0-0.8 N EOSINOPHIL # (test code = EO#) 0.52 K/mm3 0.0-0.5 H BASOPHIL # (test code = BA#) 0.06 K/mm3 0.0-0.2 N NUCLEATED RBC # (test code = NRBC#) 0.00 K/mm3 0.0-0.1 N MANUAL DIFF REQUIRED (test code = MDIFF) NO, ONLY SCAN NEEDED DIFFERENTIAL [id number] 20:53:00* Test Item Value Reference Range Interpretation Comments STAIN ACCEPTABILITY (test code = STN ACCEPTABLE) STAIN ACCEPTABLE POLYCHROMASIA (test code = POLC) 1+ HYPOCHROMIA (test code = HYPO) 1+ POIKILOCYTOSIS (test code = POIK) 1+ ANISOCYTOSIS (test code = ANISO) 1+ MICROCYTOSIS (test code = MICR) 1+ OVALOCYTES (test code = OVAL) 1+ PLATELET ESTIMATE (test code = PLTEST) ADEQUATE PLATELET MORPHOLOGY (test code = PLTMORPH) NORMAL BASIC METABOLIC [id number] 20:35:00* Test Item Value Reference Range Interpretation Comments SODIUM (test code = NA) 139 mmol/L 136-145 N POTASSIUM (test code = K) 3.6 mmol/L 3.5-5.1 N CHLORIDE (test code = CL) 104.0 mmol/L 98-107 N CARBON DIOXIDE (test code = CO2) 30.0 mmol/L 21-32 N ANION GAP (test code = GAP) 8.6 10-20 L GLUCOSE (test code = GLU) 79 mg/dL 74-106 N BLOOD UREA NITROGEN (test code = BUN) 15 mg/dL 7-18 N GLOMERULAR FILTRATION RATE (test code = GFR) > 60 mL/min >=60 Estimated GFR by using Modified MDRD formula.Chronic kidney disease is defined as either kidney damageor GFR <60 mL/min/1.73 m2 for >3 months. CREATININE (test code = CREAT) 1.00 mg/dL 0.7-1.3 N BUN/CREATININE RATIO (test code = BUN/CREA) 14.4 10-20 N CALCIUM (test code = CA) 9.0 mg/dL 8.5-10.1 N BASIC METABOLIC [id number] 20:30:00* Test Item Value Reference Range Interpretation Comments SODIUM (test code = NA) 139 mmol/L 136-145 N POTASSIUM (test code = K) 3.6 mmol/L 3.5-5.1 N CHLORIDE (test code = CL) 104.0 mmol/L 98-107 N CARBON DIOXIDE (test code = CO2) mmol/L 21-32 ANION GAP (test code = GAP) 10-20 GLUCOSE (test code = GLU) mg/dL 74-106 BLOOD UREA NITROGEN (test code = BUN) mg/dL 7-18 GLOMERULAR FILTRATION RATE (test code = GFR) mL/min >=60 CREATININE (test code = CREAT) mg/dL 0.7-1.3 BUN/CREATININE RATIO (test code = BUN/CREA) 10-20 CALCIUM (test code = CA) mg/dL 8.5-10.1 CBC W/AUTO [id number] 20:05:00* Test Item Value Reference Range Interpretation Comments WHITE BLOOD CELL (test code = WBC) 8.4 K/mm3 4.5-12.5 N RED BLOOD CELL (test code = RBC) 7.64 mill/mm3 4.0-5.8 H HEMOGLOBIN (test code = HGB) 13.8 gram/dL 13.0-17.5 N HEMATOCRIT (test code = HCT) 47.3 % 42.0-52.0 N MEAN CELL VOLUME (test code = MCV) 61.9 fL 80-98 L MEAN CELL HGB (test code = MCH) 18.1 picogram 27.0-33.0 L MEAN CELL HGB CONCETRATION (test code = MCHC) 29.2 gram/dL 33.0-36. 0 L RED CELL DISTRIBUTION WIDTH (test code = RDW) 19.5 % 11.6-16. 2 H RED CELL DISTRIBUTION WIDTH SD (test code = RDW-SD) 34.5 fL 37 .0-51.0 L PLATELET COUNT (test code = PLT) 246 K/mm3 150-450 N MEAN PLATELET VOLUME (test code = MPV) 10.0 fL 6.7-11.0 N NEUTROPHIL % (test code = NT%) 45.6 % 39.0-69.0 N IMMATURE GRANULOCYTE % (test code = IG%) 0.5 % 0.0-5.0 N LYMPHOCYTE % (test code = LY%) 38.9 % 25.0-55.0 N MONOCYTE % (test code = MO%) 8.1 % 0.0-10.0 N EOSINOPHIL % (test code = EO%) 6.2 % 0.0-5.0 H BASOPHIL % (test code = BA%) 0.7 % 0.0-1.0 N NUCLEATED RBC % (test code = NRBC%) 0.0 % 0-0 N NEUTROPHIL # (test code = NT#) 3.81 K/mm3 1.8-7.7 N IMMATURE GRANULOCYTE # (test code = IG#) 0.04 x10 3/uL 0-0.03 H LYMPHOCYTE # (test code = LY#) 3.25 K/mm3 1.0-5.0 N MONOCYTE # (test code = MO#) 0.68 K/mm3 0-0.8 N EOSINOPHIL # (test code = EO#) 0.52 K/mm3 0.0-0.5 H BASOPHIL # (test code = BA#) 0.06 K/mm3 0.0-0.2 N NUCLEATED RBC # (test code = NRBC#) 0.00 K/mm3 0.0-0.1 N MANUAL DIFF REQUIRED (test code = MDIFF) NO, ONLY SCAN NEEDED DIFFERENTIAL [id number] 20:05:00* Test Item Value Reference Range Interpretation Comments STAIN ACCEPTABILITY (test code = STN ACCEPTABLE) CABOT RINGS (test code = CAB) MORPHOLOGY COMMENT (test code = MOC) PLATELET ESTIMATE (test code = PLTEST) PLATELET MORPHOLOGY (test code = PLTMORPH) CBC W/AUTO [id number] 20:05:00* Test Item Value Reference Range Interpretation Comments WHITE BLOOD CELL (test code = WBC) 8.4 K/mm3 4.5-12.5 N RED BLOOD CELL (test code = RBC) 7.64 mill/mm3 4.0-5.8 H HEMOGLOBIN (test code = HGB) 13.8 gram/dL 13.0-17.5 N HEMATOCRIT (test code = HCT) 47.3 % 42.0-52.0 N MEAN CELL VOLUME (test code = MCV) 61.9 fL 80-98 L MEAN CELL HGB (test code = MCH) 18.1 picogram 27.0-33.0 L MEAN CELL HGB CONCETRATION (test code = MCHC) 29.2 gram/dL 33.0-36. 0 L RED CELL DISTRIBUTION WIDTH (test code = RDW) 19.5 % 11.6-16. 2 H RED CELL DISTRIBUTION WIDTH SD (test code = RDW-SD) 34.5 fL 37 .0-51.0 L PLATELET COUNT (test code = PLT) 246 K/mm3 150-450 N MEAN PLATELET VOLUME (test code = MPV) 10.0 fL 6.7-11.0 N NEUTROPHIL % (test code = NT%) 45.6 % 39.0-69.0 N IMMATURE GRANULOCYTE % (test code = IG%) 0.5 % 0.0-5.0 N LYMPHOCYTE % (test code = LY%) 38.9 % 25.0-55.0 N MONOCYTE % (test code = MO%) 8.1 % 0.0-10.0 N EOSINOPHIL % (test code = EO%) 6.2 % 0.0-5.0 H BASOPHIL % (test code = BA%) 0.7 % 0.0-1.0 N NUCLEATED RBC % (test code = NRBC%) 0.0 % 0-0 N NEUTROPHIL # (test code = NT#) 3.81 K/mm3 1.8-7.7 N IMMATURE GRANULOCYTE # (test code = IG#) 0.04 x10 3/uL 0-0.03 H LYMPHOCYTE # (test code = LY#) 3.25 K/mm3 1.0-5.0 N MONOCYTE # (test code = MO#) 0.68 K/mm3 0-0.8 N EOSINOPHIL # (test code = EO#) 0.52 K/mm3 0.0-0.5 H BASOPHIL # (test code = BA#) 0.06 K/mm3 0.0-0.2 N NUCLEATED RBC # (test code = NRBC#) 0.00 K/mm3 0.0-0.1 N MANUAL DIFF REQUIRED (test code = MDIFF) NO, ONLY SCAN NEEDED DIFFERENTIAL [id number] 20:05:00* Test Item Value Reference Range Interpretation Comments STAIN ACCEPTABILITY (test code = STN ACCEPTABLE) MORPHOLOGY COMMENT (test code = MOC) PLATELET ESTIMATE (test code = PLTEST) PLATELET MORPHOLOGY (test code = PLTMORPH) CBC W/AUTO [id number] 20:04:00* Test Item Value Reference Range Interpretation Comments WHITE BLOOD CELL (test code = WBC) 8.4 K/mm3 4.5-12.5 N RED BLOOD CELL (test code = RBC) 7.64 mill/mm3 4.0-5.8 H HEMOGLOBIN (test code = HGB) 13.8 gram/dL 13.0-17.5 N HEMATOCRIT (test code = HCT) 47.3 % 42.0-52.0 N MEAN CELL VOLUME (test code = MCV) 61.9 fL 80-98 L MEAN CELL HGB (test code = MCH) 18.1 picogram 27.0-33.0 L MEAN CELL HGB CONCETRATION (test code = MCHC) 29.2 gram/dL 33.0-36. 0 L RED CELL DISTRIBUTION WIDTH (test code = RDW) 19.5 % 11.6-16. 2 H RED CELL DISTRIBUTION WIDTH SD (test code = RDW-SD) 34.5 fL 37 .0-51.0 L PLATELET COUNT (test code = PLT) 246 K/mm3 150-450 N MEAN PLATELET VOLUME (test code = MPV) 10.0 fL 6.7-11.0 N NEUTROPHIL % (test code = NT%) 45.6 % 39.0-69.0 N IMMATURE GRANULOCYTE % (test code = IG%) 0.5 % 0.0-5.0 N LYMPHOCYTE % (test code = LY%) 38.9 % 25.0-55.0 N MONOCYTE % (test code = MO%) 8.1 % 0.0-10.0 N EOSINOPHIL % (test code = EO%) 6.2 % 0.0-5.0 H BASOPHIL % (test code = BA%) 0.7 % 0.0-1.0 N NUCLEATED RBC % (test code = NRBC%) 0.0 % 0-0 N NEUTROPHIL # (test code = NT#) 3.81 K/mm3 1.8-7.7 N IMMATURE GRANULOCYTE # (test code = IG#) 0.04 x10 3/uL 0-0.03 H LYMPHOCYTE # (test code = LY#) 3.25 K/mm3 1.0-5.0 N MONOCYTE # (test code = MO#) 0.68 K/mm3 0-0.8 N EOSINOPHIL # (test code = EO#) 0.52 K/mm3 0.0-0.5 H BASOPHIL # (test code = BA#) 0.06 K/mm3 0.0-0.2 N NUCLEATED RBC # (test code = NRBC#) 0.00 K/mm3 0.0-0.1 N MANUAL DIFF REQUIRED (test code = MDIFF) NO, ONLY SCAN NEEDED DIFFERENTIAL [id number] 20:04:00* Test Item Value Reference Range Interpretation Comments STAIN ACCEPTABILITY (test code = STN ACCEPTABLE) CABOT RINGS (test code = CAB) MORPHOLOGY COMMENT (test code = MOC) PLATELET ESTIMATE (test code = PLTEST) PLATELET MORPHOLOGY (test code = PLTMORPH) CBC W/AUTO [id number] 20:04:00* Test Item Value Reference Range Interpretation Comments WHITE BLOOD CELL (test code = WBC) 8.4 K/mm3 4.5-12.5 N RED BLOOD CELL (test code = RBC) 7.64 mill/mm3 4.0-5.8 H HEMOGLOBIN (test code = HGB) 13.8 gram/dL 13.0-17.5 N HEMATOCRIT (test code = HCT) 47.3 % 42.0-52.0 N MEAN CELL VOLUME (test code = MCV) 61.9 fL 80-98 L MEAN CELL HGB (test code = MCH) 18.1 picogram 27.0-33.0 L MEAN CELL HGB CONCETRATION (test code = MCHC) 29.2 gram/dL 33.0-36. 0 L RED CELL DISTRIBUTION WIDTH (test code = RDW) 19.5 % 11.6-16. 2 H RED CELL DISTRIBUTION WIDTH SD (test code = RDW-SD) 34.5 fL 37 .0-51.0 L PLATELET COUNT (test code = PLT) 246 K/mm3 150-450 N MEAN PLATELET VOLUME (test code = MPV) 10.0 fL 6.7-11.0 N NEUTROPHIL % (test code = NT%) 45.6 % 39.0-69.0 N IMMATURE GRANULOCYTE % (test code = IG%) 0.5 % 0.0-5.0 N LYMPHOCYTE % (test code = LY%) 38.9 % 25.0-55.0 N MONOCYTE % (test code = MO%) 8.1 % 0.0-10.0 N EOSINOPHIL % (test code = EO%) 6.2 % 0.0-5.0 H BASOPHIL % (test code = BA%) 0.7 % 0.0-1.0 N NUCLEATED RBC % (test code = NRBC%) 0.0 % 0-0 N NEUTROPHIL # (test code = NT#) 3.81 K/mm3 1.8-7.7 N IMMATURE GRANULOCYTE # (test code = IG#) 0.04 x10 3/uL 0-0.03 H LYMPHOCYTE # (test code = LY#) 3.25 K/mm3 1.0-5.0 N MONOCYTE # (test code = MO#) 0.68 K/mm3 0-0.8 N EOSINOPHIL # (test code = EO#) 0.52 K/mm3 0.0-0.5 H BASOPHIL # (test code = BA#) 0.06 K/mm3 0.0-0.2 N NUCLEATED RBC # (test code = NRBC#) 0.00 K/mm3 0.0-0.1 N MANUAL DIFF REQUIRED (test code = MDIFF) NO, ONLY SCAN NEEDED DIFFERENTIAL [id number] 20:04:00* Test Item Value Reference Range Interpretation Comments STAIN ACCEPTABILITY (test code = STN ACCEPTABLE) CABOT RINGS (test code = CAB) MORPHOLOGY COMMENT (test code = MOC) PLATELET ESTIMATE (test code = PLTEST) PLATELET MORPHOLOGY (test code = PLTMORPH) CBC W/AUTO [id number] 20:02:00* Test Item Value Reference Range Interpretation Comments WHITE BLOOD CELL (test code = WBC) K/mm3 4.5-12.5 RED BLOOD CELL (test code = RBC) mill/mm3 4.0-5.8 HEMOGLOBIN (test code = HGB) 13.8 gram/dL 13.0-17.5 N HEMATOCRIT (test code = HCT) 47.3 % 42.0-52.0 N MEAN CELL VOLUME (test code = MCV) fL 80-98 MEAN CELL HGB (test code = MCH) picogram 27.0-33.0 MEAN CELL HGB CONCETRATION (test code = MCHC) gram/dL 33.0-36. 0 RED CELL DISTRIBUTION WIDTH (test code = RDW) % 11.6-16. 2 RED CELL DISTRIBUTION WIDTH SD (test code = RDW-SD) fL 37 .0-51.0 PLATELET COUNT (test code = PLT) K/mm3 150-450 MEAN PLATELET VOLUME (test code = MPV) fL 6.7-11.0 NEUTROPHIL % (test code = NT%) % 39.0-69.0 IMMATURE GRANULOCYTE % (test code = IG%) % 0.0-5.0 LYMPHOCYTE % (test code = LY%) % 25.0-55.0 MONOCYTE % (test code = MO%) % 0.0-10.0 EOSINOPHIL % (test code = EO%) % 0.0-5.0 BASOPHIL % (test code = BA%) % 0.0-1.0 NEUTROPHIL # (test code = NT#) K/mm3 1.8-7.7 LYMPHOCYTE # (test code = LY#) K/mm3 1.0-5.0 MONOCYTE # (test code = MO#) K/mm3 0-0.8 EOSINOPHIL # (test code = EO#) K/mm3 0.0-0.5 BASOPHIL # (test code = BA#) K/mm3 0.0-0.2
[2019-11-15] MEDS ORDERED: DIPHENHYDRAMINE HCL INJ 50 MG/ML VIAL IV ONE (07:30)
[2019-11-15] MEDS ORDERED: METOCLOPRAMIDE HCL 10 MG/2ML VIAL IV ONE (07:30)
[2019-11-15] MEDS ORDERED: METOCLOPRAMIDE HCL 10 MG/2ML VIAL ONE (07:32)
[2019-11-15 07:34] LABS: BASOPHILS % 0.4 % (0.0-1.0); HEMATOCRIT 41.7 % (38.2-49.6); HEMOGLOBIN 12.7 g/dL (14.0-18.0); LYMPHOCYTES % 18.5 % (18.0-39.1); MEAN CORPUSCULAR HEMOGLOBIN 17.8 pg (28-32); MEAN CORPUSCULAR HGB CONC 30.5 g/dL (31-35); MEAN CORPUSCULAR VOLUME 58.5 fL (81-99); MONOCYTES # (AUTO) 0.6 (0.2-0.8); NEUTROPHILS # (AUTO) 3.8 (2.1-6.9); NEUTROPHILS % 69.9 % (38.7-80.0); PLATELET COUNT 160 x10e3/uL (140-360); RED CELL DISTRIBUTION WIDTH 18.5 % (11.7-14.4)
--- NOTE | 2019-11-15 07:37 | Emergency Department Note ---
History of Present Illnes History of Present Illness Chief Complaint: Flu Like Symptoms History of Present Illness This is a 54 year old male arrives to the ED with complaints of generalized malaise and weakness for several days- also a mild headache. Pt denies any trouble ambulating, no numbness or weakness. Pt see at a clinic yesterday, negative covid, step and flu swab yesterday. Historian: Patient Arrival Mode: Car Onset (how long ago): day(s) Severity: mild Duration (how long): day(s) Timing of current episode: constant Progression: unchanged Chronicity: new Context: Denies recent illness Relieving factors: none Exacerbating factors: none Past Medical/Family History Physician Review I have reviewed the patient's past medical and family history. Any updates have been documented here. Past Medical History Recent Fever: No Clinical Suspicion of Infectio: No New/Unexplained Change in Ment: No Past Medical History: Hypertension, Kidney Stones Past Surgical History: None Social History Smoking Cessation: Never Smoker Counseling Performed: No Alcohol Use: Occasional Any Illegal Drug Use: No Physically hurt or threatened: No Other Last Tetanus: [place] Any Pre-Existing Lines (PICC,: No Review of Systems Review of Systems Constitutional: Reports as per HPI, Reports malaise, Reports weakness EENTM: Reports no symptoms Cardiovascular: Reports no symptoms Respiratory: Reports no symptoms Gastrointestinal: Reports no symptoms Genitourinary: Reports no symptoms Musculoskeletal: Reports no symptoms Integumentary: Reports no symptoms Neurological: Reports no symptoms Psychological: Reports no symptoms Endocrine: Reports no symptoms Hematological/Lymphatic: Reports no symptoms Physical Exam Related Data Allergies: Coded Allergies: No Known Allergies (Unverified , 06/15/18) Triage Vital Signs Vital Signs Date Time Temp Pulse Resp B/P (MAP) Pulse Ox O2 Delivery O2 Flow Rate FiO2 11/15/19 07:07 98.7 84 17 145/95 99 Room Air Vital signs reviewed: Yes Physical Exam CONSTITUTIONAL Constitutional: Present well-developed, Present well-nourished HENT HENT: Present normocephalic, Present atraumatic, Present oropharynx clear/moist, Present nose normal HENT L/R: Present left ext ear normal, Present right ext ear normal EYES Eyes: Reports PERRL, Reports conjunctivae normal NECK Neck: Present ROM normal PULMONARY Pulmonary: Present effort normal, Present breath sounds normal CARDIOVASCULAR Cardiovascular: Present regular rhythm, Present heart sounds normal, Present capillary refill normal, Present normal rate GASTROINTESTINAL Abdominal: Present soft, Present nontender, Present bowel sounds normal GENITOURINARY Genitourinary: Present exam deferred SKIN Skin: Present warm, Present dry MUSCULOSKELETAL Musculoskeletal: Present ROM normal NEUROLOGICAL Neurological: Present alert, Present oriented x 3, Present no gross motor or sensory deficits PSYCHOLOGICAL Psychological: Present mood/affect normal, Present judgement normal Results Laboratory Lab results reviewed: Yes Laboratory comments Laboratory Tests Test 11/15/19 07:15 White Blood Count 5.36 x10e3/uL (4.8-10.8) Red Blood Count 7.13 x10e6/uL (4.3-5.7) Hemoglobin 12.7 g/dL (14.0-18.0) Hematocrit 41.7 % (38.2-49.6) Mean Corpuscular Volume 58.5 fL (81-99) Mean Corpuscular Hemoglobin 17.8 pg (28-32) Mean Corpuscular Hemoglobin Concent 30.5 g/dL (31-35) Red Cell Distribution Width 18.5 % (11.7-14.4) Platelet Count 160 x10e3/uL (140-360) Neutrophils (%) (Auto) 69.9 % (38.7-80.0) Lymphocytes (%) (Auto) 18.5 % (18.0-39.1) Monocytes (%) (Auto) 11.0 % (4.4-11.3) Eosinophils (%) (Auto) 0.0 % (0.0-6.0) Basophils (%) (Auto) 0.4 % (0.0-1.0) Neutrophils # (Auto) 3.8 (2.1-6.9) Lymphocytes # (Auto) 1.0 (1.0-3.2) Monocytes # (Auto) 0.6 (0.2-0.8) Eosinophils # (Auto) 0.0 (0.0-0.4) Basophils # (Auto) 0.0 (0.0-0.1) Absolute Immature Granulocyte (auto 0.01 x10e3/uL (0-0.1) Platelet Estimate Adequate Giant Platelets Rare Platelet Morphology Comment Few large Anisocytosis Slight Macrocytosis Slight Ovalocytes Few Red Cell Morphology Comment Normal Urine Color Yellow (YELLOW) Urine Clarity Clear (CLEAR) Urine pH 6 (5 - 7) Urine Specific [place] 1.020 (1.010-1.025) Urine Protein Trace (NEGATIVE) Urine Glucose (UA) Negative (NEGATIVE) Urine Ketones Trace (NEGATIVE) Urine Blood Trace (NEGATIVE) Urine Nitrite Negative (NEGATIVE) Urine Bilirubin Small (NEGATIVE) Urine Urobilinogen 0.2 mg/dL (0.2 - 1) Urine Leukocyte Esterase Negative (NEGATIVE) Urine RBC 0-5 /HPF (0-5) Urine WBC None /HPF (0-5) Urine Epithelial Cells Few /LPF (NONE) Urine Transitional Epithelial Cells Rare (NONE) Urine Bacteria Many /HPF (NONE) Urine Mucus Moderate (RARE) Sodium Level 139 mmol/L (136-145) Potassium Level 3.1 mmol/L (3.5-5.1) Chloride Level 102 mmol/L (98-107) Carbon Dioxide Level 24 mmol/L (22-29) Anion Gap 16.1 mmol/L (8-16) Blood Urea Nitrogen 16 mg/dL (7-26) Creatinine 1.04 mg/dL (0.72-1.25) Estimat Glomerular Filtration Rate > 60 ML/MIN (60-) BUN/Creatinine Ratio 15 (6-25) Glucose Level 110 mg/dL (74-118) Calcium Level 8.4 mg/dL (8.4-10.2) Total Bilirubin 0.6 mg/dL (0.2-1.2) Aspartate Amino Transf (AST/SGOT) 37 IU/L (5-34) Alanine Aminotransferase (ALT/SGPT) 33 IU/L (0-55) Alkaline Phosphatase 68 IU/L (40-150) Creatine Kinase 183 IU/L (30-200) Creatine Kinase MB 0.70 ng/mL (0-5.0) Troponin I < 0.001 ng/mL (0-0.300) Total Protein 6.9 g/dL (6.5-8.1) Albumin 3.8 g/dL (3.5-5.0) Globulin 3.1 g/dL (2.3-3.5) Albumin/Globulin Ratio 1.2 (0.8-2.0) Imaging Imaging results reviewed: Yes Impressions Impression: No intracranial abnormalities. IMPRESSION: No acute abdominopelvic process identified. Diverticulosis coli without evidence for acute diverticulitis. Signed by: Dr. Julian Larson MD on 11/15/2019 8:46 AM Assessment & Plan Medical Decision Making MDM 54-year-old male arrives to the ED with complaints of generalized malaise and weakness. Patient also complained of a headache but denied any neurological symptoms, patient with no focal neurological deficits on exam. Patient denied any fever or chills. Lab work including cardiac markers were done which were unremarkable. Chest x-ray was also normal, patient complained of intermittent abdominal pain and a CT abdomen and pelvis was done to ensure no acute intra- abdominal surgical process. Assessment & Plan Final Impression: (1) Viral syndrome Depart Disposition: HOME, SELF-CARE Last Vital Signs Date Time Temp Pulse Resp B/P (MAP) Pulse Ox O2 Delivery O2 Flow Rate FiO2 11/15/19 07:07 98.7 84 17 145/95 99 Room Air Home Meds Active Scripts Ondansetron Hcl* (ZOFRAN*) 4 Mg Tablet, 4 MG SL Q6H PRN for NAUSEA, #14 MG 0 Refills Prov:RONN MCKENZIE DO 11/15/19 Azithromycin (Z-PETER) 250 Mg Tablet, 1 PKG PO DIRECTED, #1 PKG 0 Refills Prov:RONN MCKENZIE DO 11/15/19 Medications in the ED Sodium Chloride 1,000 ml @ 0 mls/hr Q0M STAT IV Last administered on 11/15/19at 07:17; Admin Dose 1,000 MLS/HR; Start 11/15/19 at 07:06; Stop 11/15/19 at 07:10; Status DC Acetaminophen 650 mg ONCE ONCE PO Last administered on 11/15/19at 07:17; Admin Dose 650 MG; Start 11/15/19 at 07:15; Stop 11/15/19 at 07:16; Status UNV Metoclopramide HCl 10 mg ONCE ONCE IV ; Start 11/15/19 at 07:30; Stop 11/15/19 at 07:31; Status UNV Diphenhydramine HCl 25 mg NOW ONCE IV ; Start 11/15/19 at 07:30; Stop 11/15/19 at 07:31; Status UNV RONN MCKENZIE DO Nov 15, 2019 07:37
[2019-11-15 07:43] LABS: RED BLOOD COUNT 7.13 x10e6/uL (4.3-5.7)
[2019-11-15 07:45] LABS: BILIRUBIN,URINE SMALL (NEGATIVE); CLARITY,URINE CLEAR (CLEAR); COLOR,URINE YELLOW (YELLOW); KETONES,URINE TRACE (NEGATIVE); LEUKOCYTE ESTERASE ,URINE NEGATIVE (NEGATIVE); NITRITE,URINE NEGATIVE (NEGATIVE); PROTEIN,URINE DIPSTICK TRACE (NEGATIVE); URINE UROBILINOGEN 0.2 mg/dL (0.2 - 1)
[2019-11-15 07:50] LABS: ALANINE AMINOTRANSFERASE 33 IU/L (0-55); ALBUMIN 3.8 g/dL (3.5-5.0); ALBUMIN/GLOBULIN RATIO 1.2 (0.8-2.0); ALKALINE PHOSPHATASE 68 IU/L (40-150); ANION GAP 16.1 mmol/L (8-16); BLOOD UREA NITROGEN 16 mg/dL (7-26); BUN/CREATININE RATIO 15 (6-25); CALCIUM 8.4 mg/dL (8.4-10.2); CARBON DIOXIDE 24 mmol/L (22-29); CHLORIDE 102 mmol/L (98-107); CREATINE KINASE 183 IU/L (30-200); CREATININE, SERUM 1.04 mg/dL (0.72-1.25); EST GLOMERULAR FILTRATION RATE > 60 ML/MIN (60-); GLUCOSE 110 mg/dL (74-118); POTASSIUM 3.1 mmol/L (3.5-5.1); SODIUM 139 mmol/L (136-145)
[2019-11-15 07:55] LABS: BACTERIA,URINE MANY /HPF; EPITHELIAL CELLS,URINE FEW /LPF; MUCUS,URINE MODERATE (RARE); RBC,URINE 0-5 /HPF (0-5); TRANSITIONAL EPI CELLS,URINE RARE
[2019-11-15] MEDS ORDERED: IOPAMIDOL 370 MG/ML 200 ML INFUS..BTL INJ ONE (08:07)
[2019-11-15] MEDS ORDERED: SODIUM CHLORIDE 0.9% 50ML 50 ML ONE (08:07)
[2019-11-15 08:11] LABS: ANISOCYTOSIS SLIGHT; OVALOCYTES FEW
[2019-11-15 08:12] LABS: PLATELET ESTIMATE ADEQUATE; PLATELET MORPHOLOGY COMMENT FEW LARGE; RBC MORPHOLOGY COMMENT NORMAL
[2019-11-15 08:13] LABS: GIANT PLATELETS RARE
--- NOTE | 2019-11-15 08:40 | Diagnostic Imaging Report ---
Examination: CT BRAIN WO CONTRAST History:Dizziness. Weakness. Headache. Comparison studies:None Technique: Axial images were obtained from the skull base to the vertex. Coronal and sagittal images reconstructed from the axial data. Dose modulation, iterative reconstruction, and/or weight based adjustment of the mA/kV was utilized to reduce the radiation dose to as low as reasonably achievable. Intravenous contrast: None Findings: Scalp: No abnormalities. Bones: No fractures, blastic or lytic lesions. Brain sulci: Appropriate for age. Ventricles: Normal in size and configuration. No hydrocephalus. Extra-axial space: No abnormalities. Parenchyma: No abnormal densities. No masses, hemorrhage, or acute or chronic cortical based vascular insults.. Sellar/suprasellar region: No abnormalities. Craniocervical junction: Patent foramen magnum. No Chiari one malformation. Incidental findings: None. Impression: No intracranial abnormalities. Signed by: Dr. Krysta Sequeira M.D. on 11/15/2019 8:37 AM
--- NOTE | 2019-11-15 08:44 | Diagnostic Imaging Report ---
EXAM: CHEST SINGLE (PORTABLE) DATE: 11/15/2019 7:45 AM INDICATION: Bodyaches, headache, fever COMPARISON: None FINDINGS: The trachea is midline. The lungs are symmetrically expanded without evidence for large focal consolidation, pneumothorax, or significant pleural effusion. The cardiomediastinal silhouette and pulmonary vasculature are within normal limits. No acute osseous abnormality is identified. The surrounding soft tissues are unremarkable. IMPRESSION: No acute cardiopulmonary process identified. Signed by: Dr. Julian Larson MD on 11/15/2019 8:41 AM
--- NOTE | 2019-11-15 08:50 | Diagnostic Imaging Report ---
CT of the abdomen and pelvis, with contrast. History: Abdominal pain. Comparison: CT abdomen/pelvis without contrast from 06/15/2018. Technique: Multidetector CT scanning of the abdomen and pelvis was performed from the level of the lung bases to the inferior pubic rami after intravenous and oral administration of contrast. Coronal and sagittal multiplanar reformations were obtained. RADIATION DOSE: Total DLP: 417.59 mGy*cm Dose modulation, iterative reconstruction, and/or weight based adjustment of the mA/kV was utilized to reduce the radiation dose to as low as reasonably achievable. FINDINGS: There is minimal bibasilar atelectasis. The visualized intrathoracic contents otherwise demonstrate no significant abnormalities. The liver is normal in size and attenuation. There is a stable 1.7 cm cyst within the left hepatic lobe. No other focal hepatic abnormalities identified. The gallbladder is unremarkable. There is no biliary ductal dilatation. The stomach, spleen, pancreas, and bilateral adrenal glands are unremarkable. The kidneys are normal in size and location and enhance symmetrically. There is no evidence for nephrolithiasis or hydronephrosis. No ureteral stone or dilatation is appreciated. The urinary bladder demonstrates no significant abnormalities. The prostate is unremarkable. The abdominal aorta is normal in course and caliber with mild atherosclerotic calcifications. The IVC is unremarkable. Please note evaluation of the bowel is limited without the use of enteric contrast material. The visualized loops of small large bowel demonstrate no evidence of obstruction or inflammation. The appendix is visualized and appears unremarkable. Scattered diverticula are noted within the sigmoid colon without adjacent inflammatory changes to suggest acute diverticulitis. There is no ascites or intraperitoneal free air. No abnormally enlarged lymph nodes are identified within the abdomen or pelvis. Stable degenerative changes noted of the thoracolumbar spine. The osseous structures otherwise demonstrate no evidence for acute fracture or destructive process. The extraperitoneal soft tissues are unremarkable. IMPRESSION: No acute abdominopelvic process identified. Diverticulosis coli without evidence for acute diverticulitis. Signed by: Dr. Julian Larson MD on 11/15/2019 8:46 AM
[2019-11-15] MEDS ORDERED: AZITHROMYCIN250 MG PO (09:03)
[2019-11-15] MEDS ORDERED: ZOFRAN4 MG SL (09:03)
== END 2019-11-15 09:23 | disposition home or self-care (01) ==
LOC: ER 07:16
DX: B34.9 Viral infection, unspecified (principal); R53.1 Weakness; R53.81 Other malaise; R51 Headache; I10 Essential (primary) hypertension; Z87.442 Personal history of urinary calculi
CPT/HCPCS: 36415; 70450; 71045; 74177; 80053; 81001; 82550; 82553; 84484; 85025; 99284; J1200; J2765; J7030; Q9967